=== PATIENT | female | born 1975 | race Caucasian/White ===

== ENCOUNTER 2024-10-05 18:01 | Emergency (ER) | payer OTHER, SELFPAY ==
[2024-10-05 18:09] VITALS: BP 127/67; PULSE 76; RESP 16; TEMP 37; O2SAT 98; BMI 24.6
--- NOTE | 2024-10-05 18:10 | HMH.EDGENADL ---
Discharge Plan Disposition Patient Disposition: Home, Self-Care Condition: Good Prescriptions Prescriptions: New ondansetron 4 mg tablet,disintegrating 4 mg PO QID PRN (Reason: nausea and vomiting) Qty: 10 0RF No Action ketorolac 10 MG tablet 10 mg PO Q6H 5 Days Qty: 20 0RF clindamycin HCl 300 MG capsule 300 mg PO Q6 10 Days Qty: 40 0RF methylprednisolone 4 MG tablet 4 mg PO DIRECTED Qty: 21 0RF Rx Instructions: Take as directed on package instructions Referrals Follow up/Referrals: Luba Karimi [Primary Care Provider] - See instructions Activity Restrictions/Add. Instructions Additional Instructions/Restrictions: I recommend reintroducing food with a brat diet which is bananas rice applesauce toast essentially bland foods. As you tolerate that you may advance your diet as tolerated. I have sent in in a Zofran to your pharmacy. You need to follow-up with your PCP this week for recheck of your potassium. If you have continued new or worsening signs or symptoms follow-up with your PCP return to the ER as needed. Clinical Impressions Clinical Impression: Nausea vomiting and diarrhea, Acute hypokalemia Instructions Patient Instructions: DI for Diarrhea and Traveler's Diarrhea -- Adult, DI for Nausea -- Adult Print Language Print Language: Indian Discharge ED Provider: Garrett Arreola General Adult HPI <SAM Loya - Last Filed: 10/05/24 20:04> General Chief complaint: Nausea/Vomiting/Diarrhea Stated complaint: possible stomache bug w vomitting Time Seen by Provider: 10/05/24 18:05 History of Present Illness HPI narrative: Patient presents for evaluation of nausea vomiting diarrhea. Patient reportedly was exposed to her grandson who has a similar illness with nausea vomiting diarrhea. Patient reports that her symptoms began this morning and she has been unable to tolerate anything by mouth. She did have a prescription for Zofran and took it but it was not helpful hence she presented to the ER for evaluation. She denies any fever chills hemoptysis hematochezia melena hematemesis hematuria focal abdominal pain but she does have diffuse abdominal tenderness. Related Data Previous Rx's ?Medication ?Instructions ?Recorded clindamycin HCl 300 mg capsule 300 mg PO Q6 10 days #40 caps 08/10/19 ketorolac 10 mg tablet 10 mg PO Q6H 5 days #20 tabs 08/10/19 methylprednisolone 4 mg tablet 4 mg PO DIRECTED #21 tabs 08/10/19 ondansetron 4 mg disintegrating 4 mg PO QID PRN nausea and 10/05/24 tablet vomiting #10 tabs Allergies Allergy/AdvReac Type Severity Reaction Status Date / Time No Known Allergies Allergy Verified 08/10/19 21:47 PFSH <SAM Loya - Last Filed: 10/05/24 20:04> [facility] Disclaimer: The information contained in this section may have been updated after the patient was seen, as this information can be updated by other users. Social History Smoking Status: Never smoker alcohol intake: never current occupational status: employed Travel in the last 8 weeks?: None Have you lived/traveled outside [place] in past 30 days?: No Contact w/someone who lives/traveled outside [place] past 30 days?: No Exposure to someone with infectious disease in past 14 days?: No Do you have a fever (greater than 100.4 F or 38 C)?: No Have you tested positive for COVID-19?: No Exposed to someone with COVID-19 in past 14 days?: No Do you have a sore throat?: No Do you have a cough?: No Do you have any weakness?: No Do you have any diarrhea?: No Are you experiencing any unusual bleeding?: No Do you have any muscle aches/pain?: No Do you have any abdominal pain?: No Are you experiencing loss of taste or smell?: No Other Medical History Have you received the Flu Vaccine for this season: No Have you received the Pneumonia Vaccine: No <SAM Loya - Last Filed: 10/05/24 20:04> ROS Obtained: Yes Systems reviewed as appropriate & no additional complaints except as documented Physical Exam <SAM Loya - Last Filed: 10/05/24 20:04> General General appearance: alert and in no apparent distress Respiratory Respiratory exam: Present normal lung sounds bilaterally Cardiovascular Cardiovascular exam: Present regular rate Neurological Exam Neurological exam: Present alert and oriented X3 Medical Decision Making <SAM Loya - Last Filed: 10/05/24 20:04> Medical Records Medical records reviewed: Yes I reviewed the patient's medical records. Screening: Per USPSTF and CDC recommendations, given the prevalence of disease in our region, it is our hospital?s policy to screen for HIV and viral Hepatitis for all patients aged 18 and over and those with ongoing risk factors. Jhon Inquiry Pt receiving controlled substance: No Vital Signs: 10/05/24 18:09 10/05/24 19:00 10/05/24 19:30 Temperature 98.6 F Temperature Source Oral Pulse Rate 74 67 Pulse Rate [Right] 76 Respiratory Rate 16 Blood Pressure 101/61 L 110/72 Blood Pressure [Right Arm] 127/67 Blood Pressure Mean [Right Arm] 87 02 Sat by Pulse Oximetry 98 98 99 Oxygen Delivery Method 10/05/24 20:31 Temperature 98.5 F Temperature Source Pulse Rate 87 Pulse Rate [Right] Respiratory Rate 20 Blood Pressure 111/68 Blood Pressure [Right Arm] Blood Pressure Mean [Right Arm] 02 Sat by Pulse Oximetry Oxygen Delivery Method Room Air Lab Data Lab results reviewed: Yes I reviewed the patient's lab results. Lab Results 10/05/24 18:46: WBC 6.9, RBC 4.65, Hgb 12.2, Hct 37.7, MCV 81.1, MCH 26.2 L, MCHC 32.4, RDW 13.5, Plt Count 216, MPV 10.7 H, Neut % (Auto) 87.7 H, Lymph % (Auto) 5.8 L, [place] % (Auto) 4.9, Eos % (Auto) 1.2, Baso % (Auto) 0.3, Neut # (Auto) 6.1, Lymph # (Auto) 0.4 L, [place] # (Auto) 0.3, Eos # (Auto) 0.1, Baso # (Auto) 0.0, Total Counted 100, Neutrophils % (Manual) 91 H, Lymphocytes % (Manual) 6 L, Monocytes % (Manual) 2, Eosinophils % (Manual) 1, Platelet Estimate Normal, Ovalocytes 1+, Sodium 138, Potassium 3.2 L, Chloride 106, Carbon Dioxide 29, Anion Gap 6.2, BUN 13, Creatinine 0.60, Estimated Creat Clear 123, Estimated GFR 107, Est GFR ( Amer) 130, Glucose 99, Calcium 8.3 L, Magnesium 2.0, Total Bilirubin 0.8, AST 26, ALT 18, Alkaline Phosphatase 50, Total Protein 6.7, Albumin 3.9, Globulin 2.8, Albumin/Globulin Ratio 1.4, Procalcitonin 0.061 10/05/24 18:46 10/05/24 18:46 Orders (Tests/Meds): ED MEDICATIONS Discontinued Medications Generic Name Dose Route Start Last Admin Trade Name Freq PRN Reason Stop Dose Admin Acetaminophen 1,000 mg 10/05/24 18:18 10/05/24 18:51 Acetaminophen 1,000mg/100ml Vial IV 10/05/24 18:19 1,000 mg ONCE ONE Administration Sodium Chloride 1,000 mls @ 999 mls/hr 10/05/24 18:18 10/05/24 18:51 Sod Chlor 0.9% 1000ml Bag IV 10/05/24 19:18 999 mls/hr .Q1H1M ONE Administration Potassium Chloride 60 meq 10/05/24 20:01 10/05/24 20:10 Potassium Chloride 20meq Tab PO 10/05/24 20:02 60 meq ONCE ONE Administration Promethazine HCl 25 mg 10/05/24 18:18 10/05/24 18:51 Promethazine Hcl 25mg/Ml 1ml Vial IV 10/05/24 18:19 25 mg ONCE ONE Administration Sodium Chloride 25 ml 10/05/24 18:18 10/05/24 18:51 Sodium Chloride 0.9% 25ml Bag IV 10/05/24 18:19 25 ml ONCE ONE Administration ORDERS Category Date Time Status CBC w/Auto Diff [Complete Blood Count Auto Diff] Stat Lab 10/05/24 18:46 Completed CMP [Comprehensive Metabolic Panel] Stat Lab 10/05/24 18:46 Completed Lactic Acid Stat Lab 10/05/24 18:19 Ordered Magnesium Stat Lab 10/05/24 18:46 Completed Procalcitonin Stat Lab 10/05/24 18:46 Completed Medical Decision Narrative: In summary patient is a 49-year-old female who presents to the emergency department for evaluation of diarrhea. Patient is hemodynamically stable the blood pressure 127/67 pulse 76 normal sinus rhythm on bedside monitor breathing 16 times minute satting at 98% on room air upon arrival, afebrile at 90.6. Physical exam is remarkable for abdominal exam that is not focally tender mildly uncomfortable to palpation but soft, bowel sounds hyperactive and there is no rebound or guarding or rigidity.. Differential diagnosis includes enteritis versus dehydration versus electrolyte disturbance etc. Initial workup will be conducted with hematologic labs.. Initial interventions include crystalloid bolus and Phenergan. Initial workup reviewed by me and her hematologic labs show white count 6.9 normal H&H with no neutrophilic shift, chemistries are remarkable for potassium 3.2 which will be repleted once patient is tolerating oral intake procalcitonin is 0.061 remainder of her hematologic labs are nonactionable reassuring. Upon repeat evaluation patient reports moderate improvement and is tolerating oral intake without nausea. Given this patient is appropriate for discharge with follow-up with her PCP this week for recheck of her potassium, a prescription for Zofran sent into her pharmacy and strict return precautions including a brat diet. <Garrett Arreola MD - Last Filed: 10/05/24 20:34> Vital Signs: 10/05/24 18:09 10/05/24 19:00 10/05/24 19:30 Temperature 98.6 F Temperature Source Oral Pulse Rate 74 67 Pulse Rate [Right] 76 Respiratory Rate 16 Blood Pressure 101/61 L 110/72 Blood Pressure [Right Arm] 127/67 Blood Pressure Mean [Right Arm] 87 02 Sat by Pulse Oximetry 98 98 99 Oxygen Delivery Method 10/05/24 20:31 Temperature 98.5 F Temperature Source Pulse Rate 87 Pulse Rate [Right] Respiratory Rate 20 Blood Pressure 111/68 Blood Pressure [Right Arm] Blood Pressure Mean [Right Arm] 02 Sat by Pulse Oximetry Oxygen Delivery Method Room Air Lab Data Lab Results 10/05/24 18:46: WBC 6.9, RBC 4.65, Hgb 12.2, Hct 37.7, MCV 81.1, MCH 26.2 L, MCHC 32.4, RDW 13.5, Plt Count 216, MPV 10.7 H, Neut % (Auto) 87.7 H, Lymph % (Auto) 5.8 L, [place] % (Auto) 4.9, Eos % (Auto) 1.2, Baso % (Auto) 0.3, Neut # (Auto) 6.1, Lymph # (Auto) 0.4 L, [place] # (Auto) 0.3, Eos # (Auto) 0.1, Baso # (Auto) 0.0, Total Counted 100, Neutrophils % (Manual) 91 H, Lymphocytes % (Manual) 6 L, Monocytes % (Manual) 2, Eosinophils % (Manual) 1, Platelet Estimate Normal, Ovalocytes 1+, Sodium 138, Potassium 3.2 L, Chloride 106, Carbon Dioxide 29, Anion Gap 6.2, BUN 13, Creatinine 0.60, Estimated Creat Clear 123, Estimated GFR 107, Est GFR ( Amer) 130, Glucose 99, Calcium 8.3 L, Magnesium 2.0, Total Bilirubin 0.8, AST 26, ALT 18, Alkaline Phosphatase 50, Total Protein 6.7, Albumin 3.9, Globulin 2.8, Albumin/Globulin Ratio 1.4, Procalcitonin 0.061 Orders (Tests/Meds): ED MEDICATIONS Discontinued Medications Generic Name Dose Route Start Last Admin Trade Name Freq PRN Reason Stop Dose Admin Acetaminophen 1,000 mg 10/05/24 18:18 10/05/24 18:51 Acetaminophen 1,000mg/100ml Vial IV 10/05/24 18:19 1,000 mg ONCE ONE Administration Sodium Chloride 1,000 mls @ 999 mls/hr 10/05/24 18:18 10/05/24 18:51 Sod Chlor 0.9% 1000ml Bag IV 10/05/24 19:18 999 mls/hr .Q1H1M ONE Administration Potassium Chloride 60 meq 10/05/24 20:01 10/05/24 20:10 Potassium Chloride 20meq Tab PO 10/05/24 20:02 60 meq ONCE ONE Administration Promethazine HCl 25 mg 10/05/24 18:18 10/05/24 18:51 Promethazine Hcl 25mg/Ml 1ml Vial IV 10/05/24 18:19 25 mg ONCE ONE Administration Sodium Chloride 25 ml 10/05/24 18:18 10/05/24 18:51 Sodium Chloride 0.9% 25ml Bag IV 10/05/24 18:19 25 ml ONCE ONE Administration ORDERS Category Date Time Status CBC w/Auto Diff [Complete Blood Count Auto Diff] Stat Lab 10/05/24 18:46 Completed CMP [Comprehensive Metabolic Panel] Stat Lab 10/05/24 18:46 Completed Lactic Acid Stat Lab 10/05/24 18:19 Ordered Magnesium Stat Lab 10/05/24 18:46 Completed Procalcitonin Stat Lab 10/05/24 18:46 Completed Medical Decision Narrative: In summary patient is a 49-year-old female who presents to the emergency department for evaluation of diarrhea. Patient is hemodynamically stable the blood pressure 127/67 pulse 76 normal sinus rhythm on bedside monitor breathing 16 times minute satting at 98% on room air upon arrival, afebrile at 90.6. Physical exam is remarkable for abdominal exam that is not focally tender mildly uncomfortable to palpation but soft, bowel sounds hyperactive and there is no rebound or guarding or rigidity.. Differential diagnosis includes enteritis versus dehydration versus electrolyte disturbance etc. Initial workup will be conducted with hematologic labs.. Initial interventions include crystalloid bolus and Phenergan. Initial workup reviewed by me and her hematologic labs show white count 6.9 normal H&H with no neutrophilic shift, chemistries are remarkable for potassium 3.2 which will be repleted once patient is tolerating oral intake procalcitonin is 0.061 remainder of her hematologic labs are nonactionable reassuring. Upon repeat evaluation patient reports moderate improvement and is tolerating oral intake without nausea. Given this patient is appropriate for discharge with follow-up with her PCP this week for recheck of her potassium, a prescription for Zofran sent into her pharmacy and strict return precautions including a brat diet. JAJA attestation I was consulted by the JAJA, and we discussed the complexity of problems being addressed. I approved the treatment and management plan for this patient's care in the emergency department, thus performing a substantial portion of the medical decision making. I also evaluated and examined the patient at bedside. Has multiple contacts with gastroenteritis and symptoms consistent with gastroenteritis. Reassuring abdominal exam. Treatment and follow-up as above. Garrett Arreola MD Critical Care <SAM Loya - Last Filed: 10/05/24 20:04> Critical Care Time Critical Care Time: Yes Attestation: On 10/05/24, the high probability of a clinically significant, sudden or life threatening deterioration of the following system(s) required my full and direct attention, intervention and personal management. The time I documented below is in addition to time spent performing reported procedures but includes the following listed in this critical care notation. Total Time Total Critical Care Time: 35
[2024-10-05] MEDS: SODIUM CHLORIDE 0.9% 25ML BAG 25 ML IV (18:51)
[2024-10-05] MEDS: ACETAMINOPHEN 1,000MG/100ML VIAL 1000 MG IV (18:51)
[2024-10-05] MEDS: PROMETHAZINE HCL 25MG/ML 1ML VIAL 25 MG IV (18:51)
[2024-10-05] MEDS: 0.9 % SODIUM CHLORIDE 1000ML 1,000 ML 999 ML IV (18:51)
[2024-10-05 19:00] VITALS: BP 101/61; PULSE 74; O2SAT 98
[2024-10-05 19:17] LABS: Basophils % 0.3 % (0.1-2.0); Eosinophils # 0.1 Kmm3 (0.0-0.4); Eosinophils % 1.2 % (0.1-12.0); Hematocrit 37.7 % (37.0-47.0); Hemoglobin 12.2 g/dL (12.2-16.2); Lymphocytes # 0.4 K/mm3 (0.7-4.5); Lymphocytes % 5.8 % (10-50); Mean Corpuscular HGB Conc 32.4 g/dL (31.8-35.4); Mean Corpuscular Hemoglobin 26.2 pg (27.0-31.2); Mean Corpuscular Volume 81.1 fl (81-99); Mean Platelet Volume 10.7 fl (7.4-10.4); Monocytes # 0.3 K/mm3 (0.1-1.0); Monocytes % 4.9 % (1.7-9.3); Neutrophils # 6.1 K/mm3 (1.8-7.8); Neutrophils % 87.7 % (37.0-80.0); Nucleated Red Blood Cells # 0 10^3/uL; Nucleated Red Blood Cells % 0 %; Platelet Count 216 K/mm3 (142-424); Red Blood Count 4.65 M/mm3 (4.20-5.40); Red Cell Distribution Width 13.5 % (11.5-17.5); Red Cell Distribution Width-SD 39.7 fL; White Blood Count 6.9 K/mm3 (4.8-10.8)
[2024-10-05 19:25] LABS: MANUAL DIFFERENTIAL MANUAL DIFFERENTIAL (MANUAL DIFF)
[2024-10-05 19:30] VITALS: BP 110/72; PULSE 67; O2SAT 99
[2024-10-05 19:34] LABS: Alanine Aminotransferase 18 U/L (12-78); Albumin Level 3.9 g/dl (3.5-5.0); Albumin/Globulin Ratio 1.4 (1.1-1.8); Alkaline Phosphatase 50 U/L (38-126); Anion Gap 6.2 mEq/L (5-15); Aspartate Amino Transferase 26 U/L (14-36); Bilirubin,Total 0.8 mg/dl (0.2-1.3); Blood Urea Nitrogen 13 mg/dl (7-17); Calcium 8.3 mg/dl (8.4-10.2); Carbon Dioxide 29 mmol/L (22.0-30.0); Chloride 106 mmol/L (98-107); Creatinine Clearance Estimated 123 mL/min (50-200); Estimated Glomerular Filt Rate 107 ml/min (>60); GFR (African American) 130 ML/MIN (>60); Globulin 2.8 g/dL (1.3-3.2); Glucose 99 mg/dl (74-100); Potassium 3.2 mmoL/L (3.5-5.1); Sodium 138 mmol/L (136-145); Total Protein,Serum 6.7 g/dl (6.3-8.2)
[2024-10-05 19:51] LABS: Procalcitonin 0.061 ng/mL (0.0-2.0)
[2024-10-05 20:05] LABS: Eosinophils % 1 % (0-3); Lymphocytes % 6 % (10-50); Monocytes % 2 % (2-9); Neutrophils % 91 % (42-76); Total Cells Counted 100
[2024-10-05 20:06] LABS: Ovalocytes 1+; Platelet Estimate Normal
[2024-10-05] MEDS: POTASSIUM CHLORIDE 20MEQ TAB 60 MEQ PO (20:10)
[2024-10-05 20:31] VITALS: BP 111/68; PULSE 87; RESP 20; TEMP 36.9; O2SAT 99
== END 2024-10-05 20:32 | disposition home or self-care (01) ==
PROVIDERS: Physician Assistant; Emergency Provider Student in an Organized Health Care Education/Training Program; PCP Nurse Practitioner Family
DX: R10.817 Generalized abdominal tenderness (principal); R11.2 Nausea with vomiting, unspecified; E87.6 Hypokalemia; R19.7 Diarrhea, unspecified
CPT/HCPCS: 80053; 83735; 84145; 85007; 85025; 85027; 96361; 96374; 96375; 99284; J0131; J2550; J7030